=== PATIENT | male | born 1945 | race African-American/Black ===

== ENCOUNTER 2017-12-04 09:23 | Emergency (ER) | payer OTHER ==
[2017-12-04] MEDS: ACETAMINOPHEN 325 MG TAB PO (11:45)
[2017-12-04] MEDS: SODIUM CHLORID 0.9% 500 ML INJ 500 ML IV ×2 (11:52→14:30)
[2017-12-04] MEDS: KETOROLAC TROMETHAMINE 30 MG/ML (IVP) VIAL IV PUSH ×2 (11:52→15:04)
[2017-12-04] MEDS: cloNIDine HCL 0.1 MG TAB PO (11:53)
[2017-12-04 11:58] LABS: AUTOMATED NEUTROPHIL # 8.2 TH/MM3 (1.8-7.7); BASOPHIL # 0.1 TH/MM3 (0-0.2); BASOPHIL % 0.6 % (0.0-2.0); EOSINOPHIL % 0.3 % (0.0-4.0); HEMATOCRIT 45.1 % (39.0-51.0); LYMPH % 8.5 % (9.0-44.0); LYMPHOCYTE # 0.8 TH/MM3 (1.0-4.8); MEAN CELL VOLUME 83.3 FL (80.0-100.0); MEAN CORPUSCULAR HEMOGLOBIN 27.6 PG (27.0-34.0); MEAN CORPUSCULAR HGB CONC 33.2 % (32.0-36.0); MEAN PLATELET VOLUME 8.9 FL (7.0-11.0); MONOCYTE # 0.7 TH/MM3 (0-0.9); NEUT % 83.6 % (16.0-70.0); PLATELET COUNT 156 TH/MM3 (150-450); RED BLOOD COUNT 5.42 MIL/MM3 (4.50-5.90); RED CELL DISTRIBUTION WIDTH 15.8 % (11.6-17.2); WHITE BLOOD COUNT 9.7 TH/MM3 (4.0-11.0)
[2017-12-04 12:03] LABS: HEMO FLAGS DIFF FINAL
[2017-12-04 12:27] LABS: ALKALINE PHOSPHATASE 89 U/L (45-117); TOTAL BILIRUBIN ADULT 0.5 MG/DL (0.2-1.0); TOTAL PROTEIN 8.2 GM/DL (6.4-8.2); TROPONIN I LESS THAN 0.02 NG/ML (0.02-0.05)
[2017-12-04 12:34] LABS: ALT (GPT) 57 U/L (12-78); ANION GAP 8 MEQ/L (5-15); AST (GOT) 28 U/L (15-37); BICARBONATE 24.7 MEQ/L (21.0-32.0); BLOOD UREA NITROGEN 15 MG/DL (7-18); CALCIUM 8.6 MG/DL (8.5-10.1); CHLORIDE 105 MEQ/L (98-107); GLOMERULAR FILTRATION RATE 72 ML/MIN (>89); GLUCOSE,RANDOM 99 MG/DL (74-106); MAGNESIUM 2.1 MG/DL (1.5-2.5); POTASSIUM 4.3 MEQ/L (3.5-5.1); SODIUM (NA) 138 MEQ/L (136-145)
[2017-12-04] MEDS: cefTRIAXone INJ 1,000 MG in SODIUM CHLORIDE 0.9% INJ 100 ML IV (13:15)
[2017-12-04] MEDS: AZITHROMYCIN 250 MG TAB PO (13:49)
[2017-12-04] MEDS: hydrALAZINE HCL 20 MG/ML VIAL IV PUSH ×2 (13:51→15:04)
== END 2017-12-04 15:58 | disposition home or self-care (01) ==
LOC: NEPC 09:23
DX: J18.9 Pneumonia, unspecified organism (principal); I10 Essential (primary) hypertension; Z79.899 Other long term (current) drug therapy
CPT/HCPCS: 71046; 80053; 83735; 84484; 85025; 87804; 87804-59; 93005; 96361; 96365; 96375; 96376; 99285-25